=== PATIENT | male | born 1960 | race Caucasian/White ===

== ENCOUNTER 2016-08-01 15:36 | Inpatient (IN) | payer OTHER ==
[2016-08-01 16:28] VITALS: BMI 22.8
--- NOTE | 2016-08-01 17:03 | HP ---
CIWA Score - CIWA Score Nausea/Vomitin-Mild Nausea/No Vomiting Muscle Tremors: 4-Moderate,w/Arms Extend Anxiety: 4-Mod. Anxious/Guarded Agitation: 4-Moderately Restless Paroxysmal Sweats: 1-Minimal Palms Moist Orientation: 3-Disoriented Date>2 days Tacttile Disturbances: 0-None Auditory Disturbances: 0-None Visual Disturbances: 0-None Headache: 0-None Present CIWA-Ar Total Score: 17 Admission ROS S - HPI Chief Complaint: withdrawal sx Allergies/Adverse Reactions: Allergies Allergy/AdvReac Type Severity Reaction Status Date / Time No Known Allergies Allergy Verified 11/30/15 19:05 History of Present Illness: 55 years old male with long history of alcohol nicotine dependence, liver cirrohsis, cataract both eyes, deaf left ear, copd and depression, longest sobriety 18 months is admitted to detox Exam Limitations: No Limitations - Ebola screening Have you traveled outside of the country in the last 21 days: No Have you had contact with anyone from an Ebola affected area: No Have you been sick,other than usual withdrawal symptoms: No Do you have a fever: No - Review of Systems Constitutional: Chills, Loss of Appetite, Changes in sleep, Unexplained wgt Loss EENT: reports: Cataracts (lens 2014 both), Other Respiratory: reports: SOB with Exertion, Productive cough Cardiac: reports: Palpitations GI: reports: Nausea, Poor Appetite, Poor Fluid Intake, Abdominal cramping : reports: No Symptoms Reported Musculoskeletal: reports: Joint Pain (right ankle right wrist) Integumentary: reports: Erythema (right ankle) Neuro: reports: Tremors Endocrine: reports: Unexplained Weight Loss Hematology: reports: No Symptoms Reported Psychiatric: reports: Judgement Intact, Depressed Other Systems: Reviewed and Negative Patient History - Patient Medical History Hx Anemia: No Hx Asthma: Yes Hx Chronic Obstructive Pulmonary Disease (COPD): Yes Hx Cancer: No Hx Cardiac Disorders: No Hx Congestive Heart Failure: No Hx Hypertension: No Hx Hypercholesterolemia: No Hx Pacemaker: No HX Cerebrovascular Accident: No Hx Seizures: No (denies) Hx Dementia: No Hx Diabetes: No Hx Gastrointestinal Disorders: No Hx Liver Disease: Yes (liver cirosis) Hx Genitourinary Disorders: No Hx Sexually Transmitted Disorders: No Hx Renal Disease (ESRD): No Hx Thyroid Disease: Yes (treated with synthroid) Hx Human Immunodeficiency Virus (HIV): No (2015) Hx Hepatitis C: No Hx Depression: Yes Hx Suicide Attempt: Yes (18 months ago hang self) Hx Bipolar Disorder: No Hx Schizophrenia: No - Patient Surgical History Past Surgical History: Yes Hx Neurologic Surgery: No Hx Cataract Extraction: Yes (2014) Hx Cardiac Surgery: No Hx Lung Surgery: No Hx Breast Surgery: No Hx Breast Biopsy: No Hx Abdominal Surgery: No Hx Appendectomy: No Hx Cholecystectomy: No Hx Genitourinary Surgery: No Hx Orthopedic Surgery: Yes (left ankle fx - cast) Anesthesia Reaction: No - PPD History Previous Implant?: Yes Documented Results: Negative w/o proof Implanted On Prior [facility] Admission?: Yes Date: 12/02/15 PPD to be Administered?: Yes - Smoking Cessation Smoking history: Current every day smoker Have you smoked in the past 12 months: Yes Aproximately how many cigarettes per day: 6 Cigars Per Day: 0 Hx Chewing Tobacco Use: No Initiated information on smoking cessation: Yes 'Breaking Loose' booklet given: 08/01/16 - Substance & Tx. History Hx Alcohol Use: Yes Hx Substance Use: No Substance Use Type: Alcohol Hx Substance Use Treatment: Yes - Substances Abused Alcohol Route: Oral Frequency: Daily Amount used: pint volka Age of first use: 14 Date of Last Use: 08/01/16 Family Disease History - Family Disease History Family Disease History: Heart Disease: Father (), [place]: Grandparent, Mother () Other Family History: only child Admission Physical Exam [facility] - Vital Signs Vital Signs: Vital Signs - 24 hr 08/01/16 16:26 Temperature 97.5 F L Pulse Rate 96 H Respiratory 20 Rate Blood Pressure 127/75 - Physical General Appearance: Yes: Appropriately Dressed, Moderate Distress, Alcohol on Breath, Thin, Tremorous, Irritable, Sweating, Anxious HEENTM: Yes: Hearing grossly Normal, Normal ENT Inspection, Normocephalic, Normal Voice Respiratory: Yes: Chest Non-Tender, Lungs Clear, Normal Breath Sounds, No Respiratory Distress, No Accessory Muscle Use Neck: Yes: Supple, Trachea in good position Breast: Yes: Breasts Symetrical Cardiology: Yes: Regular Rhythm, S1, S2, Tachycardia Abdominal: Yes: Non Tender, Soft Genitourinary: Yes: Within Normal Limits Back: Yes: Within Normal Limits Musculoskeletal: Yes: Gait Steady, Joint swelling (right ankle) Extremities: Yes: Non-Tender, Tremors, Swelling (right ankle) Neurological: Yes: Alert, Motor Strength 5/5, Normal Response, Depressed Affect Integumentary: Yes: Warm Lymphatic: Yes: Within Normal Limits - Diagnostic (1) Alcohol dependence with uncomplicated withdrawal Current Visit: Yes Status: Acute (2) Alcoholic cirrhosis of liver without ascites Current Visit: Yes Status: Chronic (3) COPD (chronic obstructive pulmonary disease) Current Visit: Yes Status: Acute Qualifiers: COPD type: emphysema Emphysema type: other Qualified Code(s): J43.8 - Other emphysema (4) Hypothyroidism Current Visit: Yes Status: Acute Qualifiers: Hypothyroidism type: congenital without goiter Qualified Code(s): E03.1 - Congenital hypothyroidism without goiter Comment: last dose "months" ago tsh pending (5) Nicotine dependence Current Visit: Yes Status: Acute Qualifiers: Nicotine product type: cigarettes Substance use status: in withdrawal Qualified Code(s): F17.213 - Nicotine dependence, cigarettes, with withdrawal (6) Depression Current Visit: Yes Status: Suspected Qualifiers: Depression Type: dysthymia Qualified Code(s): F34.1 - Dysthymic disorder (7) S/P cataract extraction and insertion of intraocular lens Current Visit: Yes Status: Resolved Qualifiers: Laterality: unspecified laterality Qualified Code(s): Z98.49 - Cataract extraction status, unspecified eye; Z96.1 - Presence of intraocular lens (8) Acquired deafness of right ear Current Visit: Yes Status: Chronic (9) Weight loss Current Visit: Yes Status: Acute (10) Traumatic arthropathy, right ankle and foot Current Visit: Yes Status: Acute Comment: "more than a week ago" swell + pain x ray pending Cleared for Admission [facility] - Detox or Rehab [facility] Level of Care: Medically Managed Detox Regimen/Protocol: Librium [facility] Breath Alcohol Content Breath Alcohol Content: 0.243 Urine Drug Screen - Results Drug Screen Negative: Yes
[2016-08-01] MEDS ORDERED: MAG HYDROX/AL HYDROX/SIMETH 30 ML UNIT-DOSE CUP PO PRN (17:10)
[2016-08-01] MEDS ORDERED: MENTHOL/PHENOL 1 EACH UD MM PRN (17:10)
[2016-08-01] MEDS ORDERED: diphenhydrAMINE HCL 50 MG CAPSULE PO PRN (17:10)
[2016-08-01] MEDS ORDERED: guaiFENesin/D-METHORPHAN HB 10 ML UNIT-DOSE CUPS PO PRN (17:10)
[2016-08-01] MEDS ORDERED: NICOTINE POLACRILEX 2 MG GUM BC PRN (17:10)
[2016-08-01] MEDS ORDERED: ACETAMINOPHEN 325 MG TABLET (FP) PO PRN (17:10)
[2016-08-01] MEDS ORDERED: P-EPHED 60MG/TRIPROLIDI 2.5MG TABLET PO PRN (17:10)
[2016-08-01] MEDS ORDERED: chlordiazePOXIDE HCL 25 MG CAPSULE PO PRN (17:10)
[2016-08-01] MEDS ORDERED: hydrOXYzine PAMOATE 50 MG CAPSULE (FP) PO PRN (17:10)
[2016-08-01] MEDS ORDERED: IBUPROFEN 400 MG TABLET (FP) PO PRN (17:10)
[2016-08-01] MEDS ORDERED: MAGNESIUM HYDROX 2400MG/30ML ORAL SUSPENSION 30 ML CUP PO PRN (17:10)
[2016-08-01] MEDS ORDERED: LOPERAMIDE HCL 2 MG CAPSULE PO PRN (17:10)
[2016-08-01] MEDS ORDERED: MAGNESIUM CITRATE 300 ML BOTTLE PO PRN (17:10)
[2016-08-01] MEDS ORDERED: ALBUTEROL SO4 6.7 GM HFA INHALER IH PRN (17:13)
[2016-08-01] MEDS ORDERED: chlordiazePOXIDE HCL 25 MG CAPSULE PO ONE (18:45)
[2016-08-01] MEDS: chlordiazePOXIDE HCL 25 MG CAPSULE PO SCH (22:20)
[2016-08-01] MEDS: THIAMINE HCL 100 MG TABLET (FP) PO SCH (22:20)
[2016-08-01] MEDS: BUDESONIDE/FORMETEROL FUMARATE 80/4.5 mcg INHALER IH SCH (22:58)
[2016-08-01 23:39] LABS: URINE APPEARANCE SLCLOUDY; URINE BILIRUBIN NEGATIVE (NEGATIVE); URINE BLOOD NEGATIVE (NEGATIVE); URINE COLOR YELLOW; URINE GLUCOSE (UA) NEGATIVE (NEGATIVE); URINE KETONE NEGATIVE (NEGATIVE); URINE LEUK ESTERASE NEGATIVE (NEGATIVE); URINE NITRITE NEGATIVE (NEGATIVE); URINE PROTEIN NEGATIVE (NEGATIVE); URINE UROBILINOGEN 4.0 E.U/dl E.U./dl (0.2-1.0)
[2016-08-02] MEDS: chlordiazePOXIDE HCL 25 MG CAPSULE PO SCH ×5 (06:57→23:39)
[2016-08-02 10:08] LABS: MCH 34.5 pg (25.7-33.7); MCHC 34.2 g/dl (32.0-35.9); PLATELET COUNT 47 K/MM3 (134-434); RDW 15.2 % (11.9-15.9); WHITE BLOOD COUNT 2.2 K/mm3 (4.0-10.0)
[2016-08-02 10:41] LABS: ALBUMIN 2.9 g/dl (3.4-5.0); ALK PHOS 119 U/L (45-117); ANION GAP 9 (8-16); BILIRUBIN,TOTAL 0.8 mg/dL (0.2-1.0); CALCIUM 7.8 mg/dL (8.5-10.1); CO2 27 mmol/L (21-32); CREATININE 0.6 mg/dL (0.7-1.3); GLUCOSE,RANDOM 124 mg/dL (74-106); SGOT/AST 123 U/L (15-37); SGPT/ALT 59 U/L (12-78); TOT PROT 6.1 g/dl (6.4-8.2)
--- NOTE | 2016-08-02 10:48 | CONSULT ---
[facility] Psychiatric Consult - Data Date of interview: 08/02/16 Admission source: [facility] Identifying data: This is 55 years old male with psychiatric hospitalization history intoxicated with Alcohol and Nicotine Substance Abuse History: - Smoking Cessation. Smoking history: Current every day smoker. Have you smoked in the past 12 months: Yes. Aproximately how many cigarettes per day: 6. Cigars Per Day: 0. Hx Chewing Tobacco Use: No. Initiated information on smoking cessation: Yes. 'Breaking Loose' booklet given : 08/01/16. - Substance & Tx. History. Hx Alcohol Use: Yes. Hx Substance Use : No. Substance Use Type: Alcohol. Hx Substance Use Treatment: Yes. - Substances Abused. Alcohol. Route: Oral. Frequency: Daily. Amount used: pint volka. Age of first use: 14. Date of Last Use: 08/01/16 Medical History: Liver Cirrhosis, Weight loss history, COPD, Hypothyroiditis, Roght led injury history, right deafness history Psychiatric History: Patient reports most recenr psychiatric hospitalization for safety at [facility] on 2015, reports mtaking prior to admission Lexapro 10mg po qhs Physical/Sexual Abuse/Trauma History: Denies Additional Comment: Lexapro 10mg po qhs Mental Status Exam - Mental Status Exam Alert and Oriented to: Person Cognitive Function: Fair Patient Appearance: Unkempt Mood: Sad Affect: Flat Patient Behavior: Sedated Speech Pattern: Delayed Voice Loudness: Mildly Soft/Quiet Thought Process: Circumstantial Thought Disorder: Being Controlled Hallucinations: Denies Suicidal Ideation: Denies Homicidal Ideation: Denies Insight/Judgement: Fair Sleep: Difficulty falling asleep Appetite: Weight loss Muscle strength/Tone: Mild Hypotonicity Gait/Station: Shuffling Additional Comments: Lexapro 10mg po qhs Psychiatric Findings - Problem List ([place] 1, 2,3) (1) Alcohol dependence with uncomplicated withdrawal Current Visit: Yes Status: Acute (2) Nicotine dependence Current Visit: Yes Status: Acute Qualifiers: Nicotine product type: cigarettes Substance use status: in withdrawal Qualified Code(s): F17.213 - Nicotine dependence, cigarettes, with withdrawal (3) Weight loss Current Visit: Yes Status: Acute (4) Acquired deafness of right ear Current Visit: Yes Status: Chronic (5) 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
[2016-08-02] MEDS: ESCITALOPRAM OXALATE 10 MG TABLET (FP) PO SCH ×2 (11:34→11:40)
[2016-08-02] MEDS: BUDESONIDE/FORMETEROL FUMARATE 80/4.5 mcg INHALER IH SCH ×2 (11:34→23:38)
[2016-08-02] MEDS: NICOTINE 14 MG/24 HOURS TOPICAL PATCH TD SCH (11:34)
[2016-08-02] MEDS: PRENATAL VITAMINS W/ FOLIC ACID TABLET (FP) PO SCH ×2 (11:34→11:42)
[2016-08-02] MEDS ORDERED: HYDROCORTISONE 1% TOPICAL CREAM 30 GM TUBE TP PRN (11:51)
--- NOTE | 2016-08-02 11:51 | PN ---
S CIWA - CIWA Score Nausea/Vomitin Muscle Tremors: 3 Anxiety: 3 Agitation: 3 Paroxysmal Sweats: 3 Orientation: 0-Oriented Tacttile Disturbances: 1-Very Mild Itch/Numbness Auditory Disturbances: 0-None Visual Disturbances: 0-None Headache: 0-None Present CIWA-Ar Total Score: 16 BHS Progress Note (SOAP) Subjective: interrupted sleep, sweats , shakes, bitten by ? bed bug left axilla Objective: 08/02/16 11:47 Vital Signs Temperature 97.7 F 08/02/16 09:57 Pulse Rate 104 H 08/02/16 09:57 Respiratory Rate 18 08/02/16 09:57 Blood Pressure 124/70 08/02/16 09:57 O2 Sat by Pulse Oximetry (%) Laboratory Tests 08/01/16 08/02/16 08/02/16 23:20 07:00 07:00 WBC 2.2 L D RBC 3.96 L Hgb 13.7 Hct 40.0 MCV 101.0 H MCHC 34.2 RDW 15.2 Plt Count 47 L D MPV 8.0 Sodium 143 Potassium 3.5 Chloride 107 Carbon Dioxide 27 Anion Gap 9 BUN 7 Creatinine 0.6 L Creat Clearance w eGFR > 60 Random Glucose 124 H D Calcium 7.8 L Total Bilirubin 0.8 D AST 123 H D ALT 59 D Alkaline Phosphatase 119 H Total Protein 6.1 L Albumin 2.9 L TSH 53.70 H D Urine Color Yellow Urine Appearance Slcloudy Urine pH 6.0 Ur Specific [place] 1.014 Urine Protein Negative Urine Glucose (UA) Negative Urine Ketones Negative Urine Blood Negative Urine Nitrite Negative Urine Bilirubin Negative Urine Urobilinogen 4.0 e.u/dl Ur Leukocyte Esterase Negative pt aox3 in nad , trmors left axilla + excoriations Assessment: 08/02/16 11:48 withdrawl sx's ? bed bug bite Plan: cont. detox increase fluids ensure bid house keeping hydrocortisone cream
--- NOTE | 2016-08-02 14:27 | EKG ---
Test Reason : Blood Pressure : / mmHG Vent. Rate : 090 BPM Atrial Rate : 091 BPM P-R Int : 120 ms QRS Dur : 152 ms QT Int : 506 ms P-R-T Axes : 067 083 074 degrees QTc Int : 619 ms POOR DATA QUALITY, INTERPRETATION MAY BE ADVERSELY AFFECTED NORMAL SINUS RHYTHM NON-SPECIFIC INTRA-VENTRICULAR CONDUCTION BLOCK ABNORMAL ECG NO PREVIOUS ECGS AVAILABLE Confirmed by ADALBERTO SHANE, EVELINE ([id number]) on 08/02/2016 2:27:15 PM Referred By: Confirmed By:EVELINE GLOVER MD
--- NOTE | 2016-08-02 14:28 | EKG ---
Test Reason : Blood Pressure : / mmHG Vent. Rate : 080 BPM Atrial Rate : 080 BPM P-R Int : 160 ms QRS Dur : 110 ms QT Int : 428 ms P-R-T Axes : 060 075 071 degrees QTc Int : 493 ms NORMAL SINUS RHYTHM PROLONGED QT ABNORMAL ECG WHEN COMPARED WITH ECG OF 01-AUG-2016 18:59, QRS DURATION HAS DECREASED ST NO LONGER DEPRESSED IN ANTERIOR LEADS T WAVE AMPLITUDE HAS DECREASED IN ANTERIOR LEADS QT HAS SHORTENED Confirmed by EVELINE GLOVER MD ([id number]) on 08/02/2016 2:28:09 PM Referred By: Confirmed By:EVELINE GLOVER MD
[2016-08-02] MEDS ORDERED: ONDANSETRON *ODT* 4 MG TABLET SL ONE (22:44)
[2016-08-02] MEDS ORDERED: NAPROXEN 375 MG TABLET (FP) PO PRN (22:45)
[2016-08-02] MEDS ORDERED: COLLOIDAL OATMEAL 1 BAR EACH TP PRN (23:18)
--- NOTE | 2016-08-02 23:22 | PN ---
[facility] Progress Note Note: tsh 53.7 repeat tsh s/p hepatectomy 2009 follow up with endocrinology continue detox
[2016-08-02] MEDS: THIAMINE HCL 100 MG TABLET (FP) PO SCH (23:38)
[2016-08-03] MEDS: chlordiazePOXIDE HCL 25 MG CAPSULE PO SCH ×3 (06:35→17:38)
[2016-08-03] MEDS ORDERED: ONDANSETRON 4 MG TABLET PO ONE ×2 (07:15→07:45)
[2016-08-03] MEDS ORDERED: ONDANSETRON *ODT* 4 MG TABLET SL PRN (07:34)
--- NOTE | 2016-08-03 10:24 | PN ---
S CIWA - CIWA Score Nausea/Vomitin-Mild Nausea/No Vomiting Muscle Tremors: 4-Moderate,w/Arms Extend Anxiety: 4-Mod. Anxious/Guarded Agitation: 4-Moderately Restless Paroxysmal Sweats: 3 Orientation: 0-Oriented Tacttile Disturbances: 0-None Auditory Disturbances: 0-None Visual Disturbances: 0-None Headache: 2-Mild CIWA-Ar Total Score: 18 BHS Progress Note (SOAP) Subjective: agitation anxiety sweats shakes interrupted sleep headache Objective: 08/03/16 10:22 Vital Signs Temperature 97.9 F 08/03/16 09:49 Pulse Rate 97 H 08/03/16 09:49 Respiratory Rate 18 08/03/16 09:49 Blood Pressure 117/65 08/03/16 09:49 O2 Sat by Pulse Oximetry (%) Laboratory Tests 08/01/16 08/02/16 08/02/16 23:20 07:00 07:00 WBC 2.2 L D RBC 3.96 L Hgb 13.7 Hct 40.0 MCV 101.0 H MCHC 34.2 RDW 15.2 Plt Count 47 L D MPV 8.0 Sodium 143 Potassium 3.5 Chloride 107 Carbon Dioxide 27 Anion Gap 9 BUN 7 Creatinine 0.6 L Creat Clearance w eGFR > 60 Random Glucose 124 H D Calcium 7.8 L Total Bilirubin 0.8 D AST 123 H D ALT 59 D Alkaline Phosphatase 119 H Total Protein 6.1 L Albumin 2.9 L TSH 53.70 H D Urine Color Yellow Urine Appearance Slcloudy Urine pH 6.0 Ur Specific [place] 1.014 Urine Protein Negative Urine Glucose (UA) Negative Urine Ketones Negative Urine Blood Negative Urine Nitrite Negative Urine Bilirubin Negative Urine Urobilinogen 4.0 e.u/dl Ur Leukocyte Esterase Negative RPR Titer 08/02/16 07:00 WBC RBC Hgb Hct MCV MCHC RDW Plt Count MPV Sodium Potassium Chloride Carbon Dioxide Anion Gap BUN Creatinine Creat Clearance w eGFR Random Glucose Calcium Total Bilirubin AST ALT Alkaline Phosphatase Total Protein Albumin TSH Urine Color Urine Appearance Urine pH Ur Specific [place] Urine Protein Urine Glucose (UA) Urine Ketones Urine Blood Urine Nitrite Urine Bilirubin Urine Urobilinogen Ur Leukocyte Esterase RPR Titer Nonreactive awake/alert ambulating no acute distress Assessment: 08/03/16 10:23 withdrawal sx Plan: continue detox increase fluids
[2016-08-03] MEDS: ESCITALOPRAM OXALATE 10 MG TABLET (FP) PO SCH (11:10)
[2016-08-03] MEDS: PRENATAL VITAMINS W/ FOLIC ACID TABLET (FP) PO SCH (11:11)
[2016-08-03] MEDS: BUDESONIDE/FORMETEROL FUMARATE 80/4.5 mcg INHALER IH SCH ×2 (11:11→22:33)
[2016-08-03] MEDS: RANITIDINE HCL 150 MG TABLET (FP) PO SCH ×2 (11:11→22:33)
[2016-08-03] MEDS: NICOTINE 14 MG/24 HOURS TOPICAL PATCH TD SCH (11:11)
[2016-08-03] MEDS: MINERAL OIL/PETROLAT/WATER TOPICAL CREAM 113 GM JAR TP SCH (22:33)
[2016-08-03] MEDS: THIAMINE HCL 100 MG TABLET (FP) PO SCH (22:33)
[2016-08-03] MEDS: chlordiazePOXIDE 5 MG CAPSULE PO SCH (22:33)
[2016-08-04] MEDS: chlordiazePOXIDE 5 MG CAPSULE PO SCH ×3 (05:51→18:27)
[2016-08-04] MEDS: NICOTINE 14 MG/24 HOURS TOPICAL PATCH TD SCH (11:40)
[2016-08-04] MEDS: PRENATAL VITAMINS W/ FOLIC ACID TABLET (FP) PO SCH (11:41)
[2016-08-04] MEDS: ESCITALOPRAM OXALATE 10 MG TABLET (FP) PO SCH (11:43)
[2016-08-04] MEDS: RANITIDINE HCL 150 MG TABLET (FP) PO SCH ×2 (11:43→21:28)
[2016-08-04] MEDS: BUDESONIDE/FORMETEROL FUMARATE 80/4.5 mcg INHALER IH SCH ×2 (11:43→21:28)
--- NOTE | 2016-08-04 12:03 | PN ---
[facility] Progress Note (SOAP) Subjective: nausea, sweats, interrupted sleep, anxiety, tremor Objective: 08/04/16 12:02 Vital Signs - 8 hr 08/04/16 08/04/16 06:00 10:24 Temperature 97.7 F 96.9 F L Pulse Rate 78 84 Respiratory 16 18 Rate Blood Pressure 107/56 123/63 Laboratory Tests 08/01/16 08/02/16 08/02/16 23:20 07:00 07:00 WBC 2.2 L D RBC 3.96 L Hgb 13.7 Hct 40.0 MCV 101.0 H MCHC 34.2 RDW 15.2 Plt Count 47 L D MPV 8.0 Sodium 143 Potassium 3.5 Chloride 107 Carbon Dioxide 27 Anion Gap 9 BUN 7 Creatinine 0.6 L Creat Clearance w eGFR > 60 Random Glucose 124 H D Calcium 7.8 L Total Bilirubin 0.8 D AST 123 H D ALT 59 D Alkaline Phosphatase 119 H Total Protein 6.1 L Albumin 2.9 L TSH 53.70 H D Urine Color Yellow Urine Appearance Slcloudy Urine pH 6.0 Ur Specific [place] 1.014 Urine Protein Negative Urine Glucose (UA) Negative Urine Ketones Negative Urine Blood Negative Urine Nitrite Negative Urine Bilirubin Negative Urine Urobilinogen 4.0 e.u/dl Ur Leukocyte Esterase Negative RPR Titer 08/02/16 08/03/16 07:00 07:00 WBC RBC Hgb Hct MCV MCHC RDW Plt Count MPV Sodium Potassium Chloride Carbon Dioxide Anion Gap BUN Creatinine Creat Clearance w eGFR Random Glucose Calcium Total Bilirubin AST 108 H ALT 56 Alkaline Phosphatase Total Protein Albumin TSH 34.00 H D Urine Color Urine Appearance Urine pH Ur Specific [place] Urine Protein Urine Glucose (UA) Urine Ketones Urine Blood Urine Nitrite Urine Bilirubin Urine Urobilinogen Ur Leukocyte Esterase RPR Titer Nonreactive Assessment: 08/04/16 12:02 withdrawal sx, elevated TSH Plan: cont detox, hypothyroidism refer PCP for work up and possible thyroxine treatment on discharge
[2016-08-04 17:40] VITALS: TEMP 97.9
[2016-08-04] MEDS: THIAMINE HCL 100 MG TABLET (FP) PO SCH (21:28)
[2016-08-04] MEDS: chlordiazePOXIDE HCL 10 MG CAPSULE PO SCH (22:00)
[2016-08-04] MEDS: MINERAL OIL/PETROLAT/WATER TOPICAL CREAM 113 GM JAR TP SCH (22:51)
[2016-08-05] MEDS: chlordiazePOXIDE HCL 10 MG CAPSULE PO SCH (05:53)
[2016-08-05 06:40] VITALS: BP 129/58; PULSE 69
--- NOTE | 2016-08-05 08:39 | DS ---
[facility] Detox Discharge Summary Admission Date: 08/01/16 Discharge Date: 08/05/16 - History Present History: Alcohol Dependence Pertinent Past History: COPD CIRRHOSIS CATARACT EXTRACTION HEP C - Physical Exam Results Vital Signs: Vital Signs Temperature 97.9 F 08/05/16 06:00 Pulse Rate 69 08/05/16 06:00 Respiratory Rate 16 08/05/16 06:00 Blood Pressure 129/58 08/05/16 06:00 O2 Sat by Pulse Oximetry (%) Pertinent Admission Physical Exam Findings: WITHDRAWAL SX. Laboratory Last Values WBC 2.2 K/mm3 (4.0-10.0) L D 08/02/16 07:00 RBC 3.96 M/mm3 (4.00-5.60) L 08/02/16 07:00 Hgb 13.7 GM/dL (11.7-16.9) 08/02/16 07:00 Hct 40.0 % (35.4-49) 08/02/16 07:00 MCV 101.0 fl (80-96) H 08/02/16 07:00 MCHC 34.2 g/dl (32.0-35.9) 08/02/16 07:00 RDW 15.2 % (11.9-15.9) 08/02/16 07:00 Plt Count 47 K/MM3 (134-434) L D 08/02/16 07:00 MPV 8.0 fl (7.5-11.1) 08/02/16 07:00 Sodium 143 mmol/L (136-145) 08/02/16 07:00 Potassium 3.5 mmol/L (3.5-5.1) 08/02/16 07:00 Chloride 107 mmol/L (98-107) 08/02/16 07:00 Carbon Dioxide 27 mmol/L (21-32) 08/02/16 07:00 Anion Gap 9 (8-16) 08/02/16 07:00 BUN 7 mg/dL (7-18) 08/02/16 07:00 Creatinine 0.6 mg/dL (0.7-1.3) L 08/02/16 07:00 Creat Clearance w eGFR > 60 (>60) 08/02/16 07:00 Random Glucose 124 mg/dL (74-106) H D 08/02/16 07:00 Calcium 7.8 mg/dL (8.5-10.1) L 08/02/16 07:00 Total Bilirubin 0.8 mg/dL (0.2-1.0) D 08/02/16 07:00 AST 108 U/L (15-37) H 08/03/16 07:00 ALT 56 U/L (12-78) 08/03/16 07:00 Alkaline Phosphatase 119 U/L (45-117) H 08/02/16 07:00 Total Protein 6.1 g/dl (6.4-8.2) L 08/02/16 07:00 Albumin 2.9 g/dl (3.4-5.0) L 08/02/16 07:00 TSH 34.00 uIU/ml (0.358-3.74) H D 08/03/16 07:00 Urine Color Yellow 08/01/16 23:20 Urine Appearance Slcloudy 08/01/16 23:20 Urine pH 6.0 (5.0-8.0) 08/01/16 23:20 Ur Specific [place] 1.014 (1.001-1.035) 08/01/16 23:20 Urine Protein Negative (NEGATIVE) 08/01/16 23:20 Urine Glucose (UA) Negative (NEGATIVE) 08/01/16 23:20 Urine Ketones Negative (NEGATIVE) 08/01/16 23:20 Urine Blood Negative (NEGATIVE) 08/01/16 23:20 Urine Nitrite Negative (NEGATIVE) 08/01/16 23:20 Urine Bilirubin Negative (NEGATIVE) 08/01/16 23:20 Urine Urobilinogen 4.0 e.u/dl E.U./dl (0.2-1.0) 08/01/16 23:20 Ur Leukocyte Esterase Negative (NEGATIVE) 08/01/16 23:20 RPR Titer Nonreactive (NONREACTIVE) 08/02/16 07:00 LABS NOTED - Treatment Hospital Course: Detox Protocol Followed, Detoxed Safely, Responded well, Discharged Condition Good, Rehab Referral Accepted - Medication Discharge Medications: Ambulatory Orders Albuterol Sulfate Inhaler - [Ventolin Hfa Inhaler -] 1 - 2 inh PO Q4H 11/30/15 Escitalopram Oxalate [Lexapro -] 10 mg PO DAILY 11/30/15 Fluticasone/Salmeterol [Advair 250-50 Diskus] 1 each IH BID 11/30/15 Escitalopram Oxalate [Lexapro -] 10 mg PO DAILY #30 tablet 08/02/16 - Diagnosis (1) Alcohol dependence with uncomplicated withdrawal Current Visit: Yes Status: Acute (2) COPD (chronic obstructive pulmonary disease) Current Visit: Yes Status: Acute Qualifiers: COPD type: emphysema Emphysema type: other Qualified Code(s): J43.8 - Other emphysema (3) Nicotine dependence Current Visit: Yes Status: Acute Qualifiers: Nicotine product type: cigarettes Substance use status: in withdrawal Qualified Code(s): F17.213 - Nicotine dependence, cigarettes, with withdrawal (4) Alcoholic cirrhosis of liver without ascites Current Visit: Yes Status: Chronic (5) Hepatitis C Current Visit: Yes Status: Chronic Qualifiers: Hepatic coma status: without hepatic coma (6) S/P cataract extraction and insertion of intraocular lens Current Visit: Yes Status: Resolved Qualifiers: Laterality: unspecified laterality Qualified Code(s): Z98.49 - Cataract extraction status, unspecified eye; Z96.1 - Presence of intraocular lens (7) Drug-induced mood disorder Current Visit: Yes Status: Acute - AMA Did Patient Leave Against Medical Advice: No
== END 2016-08-05 10:14 | disposition home or self-care (01) | DRG 775 ==
LOC: YASAS 15:36 → Y6N 18:18
PROVIDERS: ADMIT Internal Medicine Addiction Medicine; ATTEND Internal Medicine Addiction Medicine
PROC: HZ2ZZZZ Detoxification Services for Substance Abuse Treatment (ICD-10-PCS; principal; 2016-08-01)
DX: F10.230 Alcohol dependence with withdrawal, uncomplicated (principal); F17.210 Nicotine dependence, cigarettes, uncomplicated; F19.24 Other psychoactive substance dependence with psychoactive substance-induced mood disorder; F34.1 Dysthymic disorder; J45.909 Unspecified asthma, uncomplicated; J43.8 Other emphysema; K70.30 Alcoholic cirrhosis of liver without ascites; R94.6 Abnormal results of thyroid function studies; R00.0 Tachycardia, unspecified; B18.2 Chronic viral hepatitis C; E03.9 Hypothyroidism, unspecified; H91.91 Unspecified hearing loss, right ear; Z87.898 Personal history of other specified conditions; Z98.49 Cataract extraction status, unspecified eye; Z96.1 Presence of intraocular lens; Z91.5 Personal history of self-harm; M12.571 Traumatic arthropathy, right ankle and foot; S40.862A Insect bite (nonvenomous) of left upper arm, initial encounter; W57.XXXA Bitten or stung by nonvenomous insect and other nonvenomous arthropods, initial encounter; Y93.9 Activity, unspecified; T14.90 Injury, unspecified; Y92.9 Unspecified place or not applicable
CPT/HCPCS: 36415; 73610-TC-RT; 73630-TC-RT; 80053; 81003; 84443; 84450; 84460; 85027; 86593; 93005; 93010

== ENCOUNTER 2018-04-08 15:17 | Inpatient (IN) | payer OTHER ==
[2018-04-08 16:48] VITALS: BMI 21.5
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
[2018-04-08] MEDS ORDERED: ACETAMINOPHEN 325 MG TABLET (FP) PO PRN (18:43)
[2018-04-08] MEDS ORDERED: P-EPHED 60MG/TRIPROLIDI 2.5MG TABLET PO PRN (18:43)
[2018-04-08] MEDS ORDERED: MENTHOL/PHENOL 1 EACH UD MM PRN (18:43)
[2018-04-08] MEDS ORDERED: guaiFENesin/D-METHORPHAN HB 10 ML UNIT-DOSE CUPS PO PRN (18:43)
[2018-04-08] MEDS ORDERED: MAGNESIUM HYDROX 2400MG/30ML ORAL SUSPENSION 30 ML CUP PO PRN (18:43)
[2018-04-08] MEDS ORDERED: MAG HYDROX/AL HYDROX/SIMETH 30 ML UNIT-DOSE CUP PO PRN (18:43)
[2018-04-08] MEDS ORDERED: LOPERAMIDE HCL 2 MG CAPSULE PO PRN (18:43)
[2018-04-08] MEDS ORDERED: MAGNESIUM CITRATE 300 ML BOTTLE PO PRN (18:43)
[2018-04-08] MEDS ORDERED: NICOTINE POLACRILEX 2 MG GUM BC PRN (18:43)
[2018-04-08] MEDS ORDERED: hydrOXYzine PAMOATE 25 MG CAPSULE (FP) PO PRN (18:43)
[2018-04-08] MEDS ORDERED: chlordiazePOXIDE HCL 25 MG CAPSULE PO PRN (18:43)
[2018-04-08] MEDS ORDERED: IBUPROFEN 400 MG TABLET (FP) PO PRN (18:43)
[2018-04-08] MEDS ORDERED: chlordiazePOXIDE HCL 25 MG CAPSULE PO ONE (19:15)
[2018-04-08] MEDS ORDERED: COLLOIDAL OATMEAL 1 BAR EACH TP PRN (19:30)
[2018-04-08] MEDS ORDERED: BACITRACIN 15 GM TUBE TOPICAL OINTMENT TP SCH (22:00)
[2018-04-08] MEDS: chlordiazePOXIDE HCL 25 MG CAPSULE PO SCH (22:15)
[2018-04-08] MEDS: THIAMINE HCL 100 MG TABLET (FP) PO SCH (22:15)
[2018-04-08] MEDS: TOLNAFTATE 1% CREAM 15 GM TUBE TP SCH (22:15)
[2018-04-09 00:21] LABS: URINE APPEARANCE SLCLOUDY; URINE BILIRUBIN NEGATIVE (<2.0 mg/dL); URINE COLOR AMBER; URINE GLUCOSE (UA) NEGATIVE (NEGATIVE); URINE KETONE NEGATIVE (NEGATIVE); URINE LEUK ESTERASE NEGATIVE (NEGATIVE); URINE NITRITE NEGATIVE (NEGATIVE); URINE UROBILINOGEN 4.0 E.U/dl mg/dL (0.2-1.0)
[2018-04-09 00:26] LABS: URINE PROTEIN 1+ (NEGATIVE)
[2018-04-09 00:28] LABS: EPI CELLS RARE /HPF (FEW); URINE BACTERIA RARE /hpf (NONE SEEN); URINE MUCUS MANY
[2018-04-09] MEDS: chlordiazePOXIDE HCL 25 MG CAPSULE PO SCH ×4 (05:38→22:31)
[2018-04-09] MEDS ORDERED: BACITRACIN 0.9 GM PACKET TP SCH (08:27)
--- NOTE | 2018-04-09 10:04 | EKG ---
Test Reason : Blood Pressure : / mmHG Vent. Rate : 075 BPM Atrial Rate : 075 BPM P-R Int : 150 ms QRS Dur : 106 ms QT Int : 454 ms P-R-T Axes : 063 075 079 degrees QTc Int : 506 ms NORMAL SINUS RHYTHM LOW VOLTAGE QRS PROLONGED QT ABNORMAL ECG WHEN COMPARED WITH ECG OF 02-AUG-2016 06:42, NO SIGNIFICANT CHANGE WAS FOUND Confirmed by KEN WARD MD ([id number]) on 04/09/2018 10:03:48 AM Referred By: Confirmed By:KEN WARD MD
[2018-04-09] MEDS: TOLNAFTATE 1% CREAM 15 GM TUBE TP SCH ×2 (10:18→22:30)
[2018-04-09] MEDS: PRENATAL VITAMINS W/ FOLIC ACID TABLET (FP) PO SCH (10:18)
[2018-04-09] MEDS: BACITRACIN 0.9 GM PACKET TP SCH ×2 (10:19→22:31)
[2018-04-09 10:26] LABS: HEMATOCRIT 36.4 % (35.4-49); HEMOGLOBIN 11.6 GM/dL (11.7-16.9); MCH 33.1 pg (25.7-33.7); MCHC 31.9 g/dl (32.0-35.9); MEAN CELL VOLUME 103.7 fl (80-96); MEAN PLT VOLUME 9.6 fl (7.5-11.1); PLATELET COUNT 40 K/MM3 (134-434); RBC 3.51 M/mm3 (4.00-5.60); RDW 19.5 % (11.9-15.9); WHITE BLOOD COUNT 2.1 K/mm3 (4.0-10.0)
[2018-04-09 11:21] LABS: ALBUMIN 2.6 g/dl (3.4-5.0); ALK PHOS 148 U/L (45-117); ANION GAP 10 MMOL/L (8-16); BILIRUBIN,TOTAL 1.4 mg/dL (0.2-1); BLOOD UREA NITROGEN 17 mg/dL (7-18); CALCIUM 7.6 mg/dL (8.5-10.1); CHLORIDE 113 mmol/L (98-107); CO2 23 mmol/L (21-32); CREATININE 0.5 mg/dL (0.55-1.3); GLUCOSE,RANDOM 113 mg/dL (74-106); SGOT/AST 79 U/L (15-37); SGPT/ALT 33 U/L (13-61); SODIUM 146 mmol/L (136-145); TOT PROT 5.7 g/dl (6.4-8.2)
--- NOTE | 2018-04-09 11:59 | EKG ---
Test Reason : Blood Pressure : / mmHG Vent. Rate : 094 BPM Atrial Rate : 094 BPM P-R Int : 144 ms QRS Dur : 098 ms QT Int : 410 ms P-R-T Axes : 066 080 077 degrees QTc Int : 512 ms SINUS RHYTHM WITH FREQUENT PREMATURE VENTRICULAR COMPLEXES IN A PATTERN OF BIGEMINY PROLONGED QT ABNORMAL ECG WHEN COMPARED WITH ECG OF 02-AUG-2016 06:42, PREMATURE VENTRICULAR COMPLEXES ARE NOW PRESENT T WAVE AMPLITUDE HAS INCREASED IN INFERIOR LEADS Confirmed by ED SHANE, KEN ([id number]) on 04/09/2018 11:58:53 AM Referred By: Confirmed By:KEN WARD MD
--- NOTE | 2018-04-09 14:28 | CONSULT ---
[facility] Psychiatric Consult - Data Date of interview: 04/09/18 Admission source: [facility] Identifying data: Readmission to [facility] for this 57 y/o male self- referred for detoxification treatment (alcohol,cannabis).Admitted to [address] [place] [address] Patient is ,a father of one,domiciled,unemployed and supported on SSD + food stamps. Substance Abuse History: Confirmed by patient in this interview.Details in current [facility] report : Smoking history: Current every day smoker. Have you smoked in the past 12 months: Yes. Aproximately how many cigarettes per day: 6. Cigars Per Day: 0. Hx Chewing Tobacco Use: No. Initiated information on smoking cessation: Yes. 'Breaking Loose' booklet given: 04/08/18. - Substance & Tx. History. Hx Alcohol Use: Yes. Hx Substance Use: Yes. Substance Use Type : Alcohol. Hx Substance Use Treatment: Yes (detox, rehabs). - Substances Abused. Alcohol. Route: Oral. Frequency: Daily. Amount used: LIQUOR- 1 LITRE. Age of first use: 12. Date of Last Use: 04/08/18 Medical History: Deafness in left ear,eye surgery in the past (excision of cataracts in both eyes), COPD,hypothyroidism,cirrhosis of the liver,antecedent of withdrawal-related seizures and esophageal varices (history). Psychiatric History: Patient reports a history of 5-7 psychiatric hospitalizations.Known to [facility].Diagnosed with MDD and prescribed lexapro (dose not recalled). patient has abstained from psychiatric OPD care.Has stopped taking his medication " for a while ".Mr Singleton denies history of sucicide attempts. Physical/Sexual Abuse/Trauma History: Patient denies. Additional Comment: Urine Drug Screen Results: THC-Marijuana, BZO- Benzodiazepines.Noted. Mental Status Exam - Mental Status Exam Alert and Oriented to: Time, Place, Person Cognitive Function: Good Patient Appearance: Unkempt, Disheveled Mood: Withdrawn Affect: Normal Range Patient Behavior: Fatigued, Appropriate, Cooperative Speech Pattern: Clear, Appropriate Voice Loudness: Normal Thought Process: Goal Oriented Thought Disorder: Not Present Hallucinations: Denies Suicidal Ideation: Denies Homicidal Ideation: Denies Insight/Judgement: Poor Sleep: Well Appetite: Good Muscle strength/Tone: Normal Gait/Station: Other (not observed ; patient in bed for entire interview) Psychiatric Findings - Problem List ([place] 1, 2,3) (1) Alcohol dependence with uncomplicated withdrawal Current Visit: Yes Status: Acute (2) Cannabis dependence Current Visit: Yes Status: Acute (3) Nicotine dependence Current Visit: Yes Status: Acute Qualifiers: Nicotine product type: cigarettes Substance use status: uncomplicated Qualified Code(s): F17.210 - Nicotine dependence, cigarettes, uncomplicated (4) Drug-induced mood disorder Current Visit: Yes Status: Acute - Initial Treatment Plan Initial Treatment Plan: Psychoeducation.Sleep hygiene.Detoxification in progress.Patient is encouraged to attend therapy groups + AA meetings + recreational activities on the unit.Mr Singleton agrees to this careplan.Observation.
--- NOTE | 2018-04-09 15:52 | PN ---
S CIWA - CIWA Score Nausea/Vomitin Muscle Tremors: 4-Moderate,w/Arms Extend Anxiety: 4-Mod. Anxious/Guarded Agitation: 4-Moderately Restless Paroxysmal Sweats: 3 Orientation: 0-Oriented Tacttile Disturbances: 0-None Auditory Disturbances: 0-None Visual Disturbances: 0-None Headache: 0-None Present CIWA-Ar Total Score: 18 BHS Progress Note (SOAP) Subjective: Asleep Objective: 04/09/18 15:48 Last Vital Signs Temp Pulse Resp BP Pulse Ox 98.5 F 77 16 129/77 04/09/18 13:48 04/09/18 13:48 04/09/18 13:48 04/09/18 13:48 Laboratory Tests 04/08/18 04/09/18 04/09/18 00:00 07:00 07:00 WBC 2.1 L RBC 3.51 L Hgb 11.6 L Hct 36.4 MCV 103.7 H MCH 33.1 MCHC 31.9 L RDW 19.5 H Plt Count 40 L MPV 9.6 D Sodium 146 H Potassium 4.0 Chloride 113 H Carbon Dioxide 23 Anion Gap 10 BUN 17 Creatinine 0.5 L Creat Clearance w eGFR > 60 Random Glucose 113 H Calcium 7.6 L Total Bilirubin 1.4 H AST 79 H ALT 33 Alkaline Phosphatase 148 H Total Protein 5.7 L Albumin 2.6 L Urine Color Chante Urine Appearance Slcloudy Urine pH 5.0 Ur Specific [place] 1.024 Urine Protein 1+ H Urine Glucose (UA) Negative Urine Ketones Negative Urine Blood 3+ H Urine Nitrite Negative Urine Bilirubin Negative Urine Urobilinogen 4.0 e.u/dl Ur Leukocyte Esterase Negative Urine WBC (Auto) 16 Urine RBC (Auto) 117 Ur Epithelial Cells Rare Urine Bacteria Rare Urine Mucus Many RPR Titer 04/09/18 07:00 WBC RBC Hgb Hct MCV MCH MCHC RDW Plt Count MPV Sodium Potassium Chloride Carbon Dioxide Anion Gap BUN Creatinine Creat Clearance w eGFR Random Glucose Calcium Total Bilirubin AST ALT Alkaline Phosphatase Total Protein Albumin Urine Color Urine Appearance Urine pH Ur Specific [place] Urine Protein Urine Glucose (UA) Urine Ketones Urine Blood Urine Nitrite Urine Bilirubin Urine Urobilinogen Ur Leukocyte Esterase Urine WBC (Auto) Urine RBC (Auto) Ur Epithelial Cells Urine Bacteria Urine Mucus RPR Titer Nonreactive Labs reviewed: pancytopenia, abnormal UA Assessment: 04/09/18 15:49 Withdrawal sxs Noted with pancytopenia and abnormal UA Plan: Continue detox Pancytopenia: monitor for bleeding/bruising, encouraged good hand hygiene to prevent infection, follow up with PCP post discharge for management Abnormal UA: encouraged PO water intake, repeat UA
[2018-04-09] MEDS: MELATONIN 5 MG TABLETS PO PRN (22:31)
[2018-04-09] MEDS: THIAMINE HCL 100 MG TABLET (FP) PO SCH (22:31)
[2018-04-10] MEDS: chlordiazePOXIDE HCL 25 MG CAPSULE PO SCH ×3 (05:49→17:30)
[2018-04-10] MEDS: TOLNAFTATE 1% CREAM 15 GM TUBE TP SCH ×2 (10:36→22:34)
[2018-04-10] MEDS: PRENATAL VITAMINS W/ FOLIC ACID TABLET (FP) PO SCH (10:36)
[2018-04-10] MEDS: BACITRACIN 0.9 GM PACKET TP SCH ×2 (10:36→22:34)
--- NOTE | 2018-04-10 14:12 | PN ---
S CIWA - CIWA Score Nausea/Vomitin-Mild Nausea/No Vomiting Muscle Tremors: 3 Anxiety: 4-Mod. Anxious/Guarded Agitation: 3 Paroxysmal Sweats: 3 Orientation: 0-Oriented Tacttile Disturbances: 1-Very Mild Itch/Numbness Auditory Disturbances: 0-None Visual Disturbances: 0-None Headache: 1-Very Mild CIWA-Ar Total Score: 16 BHS Progress Note (SOAP) Subjective: Tremor, interrupted sleep Objective: 04/10/18 14:08 Last Vital Signs Temp Pulse Resp BP Pulse Ox 97.2 F L 77 18 123/78 04/10/18 09:30 04/10/18 09:30 04/10/18 09:30 04/10/18 09:30 Laboratory Tests 04/08/18 04/09/18 04/09/18 00:00 07:00 07:00 WBC 2.1 L RBC 3.51 L Hgb 11.6 L Hct 36.4 MCV 103.7 H MCH 33.1 MCHC 31.9 L RDW 19.5 H Plt Count 40 L MPV 9.6 D Sodium 146 H Potassium 4.0 Chloride 113 H Carbon Dioxide 23 Anion Gap 10 BUN 17 Creatinine 0.5 L Creat Clearance w eGFR > 60 Random Glucose 113 H Calcium 7.6 L Total Bilirubin 1.4 H AST 79 H ALT 33 Alkaline Phosphatase 148 H Total Protein 5.7 L Albumin 2.6 L Urine Color Chante Urine Appearance Slcloudy Urine pH 5.0 Ur Specific [place] 1.024 Urine Protein 1+ H Urine Glucose (UA) Negative Urine Ketones Negative Urine Blood 3+ H Urine Nitrite Negative Urine Bilirubin Negative Urine Urobilinogen 4.0 e.u/dl Ur Leukocyte Esterase Negative Urine WBC (Auto) 16 Urine RBC (Auto) 117 Ur Epithelial Cells Rare Urine Bacteria Rare Urine Mucus Many RPR Titer 04/09/18 07:00 WBC RBC Hgb Hct MCV MCH MCHC RDW Plt Count MPV Sodium Potassium Chloride Carbon Dioxide Anion Gap BUN Creatinine Creat Clearance w eGFR Random Glucose Calcium Total Bilirubin AST ALT Alkaline Phosphatase Total Protein Albumin Urine Color Urine Appearance Urine pH Ur Specific [place] Urine Protein Urine Glucose (UA) Urine Ketones Urine Blood Urine Nitrite Urine Bilirubin Urine Urobilinogen Ur Leukocyte Esterase Urine WBC (Auto) Urine RBC (Auto) Ur Epithelial Cells Urine Bacteria Urine Mucus RPR Titer Nonreactive Labs reviewed: plt 40, abnormal UA Assessment: 04/10/18 14:09 Withdrawal sxs Noted with thrombocytopenia and abnormal UA Plan: Continue detox Thrombocytopenia: follow up with PCP post discharge for monitoring/management Abnormal UA: encouraged PO water intake, follow up on repeated UA result
[2018-04-10 17:31] LABS: URINE APPEARANCE CLEAR; URINE BILIRUBIN NEGATIVE (<2.0 mg/dL); URINE COLOR YELLOW; URINE GLUCOSE (UA) NEGATIVE (NEGATIVE); URINE KETONE NEGATIVE (NEGATIVE); URINE LEUK ESTERASE NEGATIVE (NEGATIVE); URINE NITRITE NEGATIVE (NEGATIVE); URINE PROTEIN NEGATIVE (NEGATIVE); URINE UROBILINOGEN 4.0 E.U/dl mg/dL (0.2-1.0)
[2018-04-10] MEDS: THIAMINE HCL 100 MG TABLET (FP) PO SCH (22:34)
[2018-04-10] MEDS: chlordiazePOXIDE 5 MG CAPSULE PO SCH (22:34)
[2018-04-11] MEDS: chlordiazePOXIDE 5 MG CAPSULE PO SCH ×3 (06:07→19:45)
[2018-04-11] MEDS: TOLNAFTATE 1% CREAM 15 GM TUBE TP SCH ×2 (10:39→22:29)
[2018-04-11] MEDS: BACITRACIN 0.9 GM PACKET TP SCH ×2 (10:39→22:28)
[2018-04-11] MEDS: PRENATAL VITAMINS W/ FOLIC ACID TABLET (FP) PO SCH (10:39)
--- NOTE | 2018-04-11 16:27 | PN ---
BHS Progress Note (SOAP) Subjective: Stomach ache, interrupted sleep Objective: 04/11/18 16:26 Last Vital Signs Temp Pulse Resp BP Pulse Ox 97.3 F L 70 17 133/67 04/11/18 13:51 04/11/18 13:51 04/11/18 13:51 04/11/18 13:51 Laboratory Tests 04/08/18 04/09/18 04/09/18 00:00 07:00 07:00 WBC 2.1 L RBC 3.51 L Hgb 11.6 L Hct 36.4 MCV 103.7 H MCH 33.1 MCHC 31.9 L RDW 19.5 H Plt Count 40 L MPV 9.6 D Sodium 146 H Potassium 4.0 Chloride 113 H Carbon Dioxide 23 Anion Gap 10 BUN 17 Creatinine 0.5 L Creat Clearance w eGFR > 60 Random Glucose 113 H Calcium 7.6 L Total Bilirubin 1.4 H AST 79 H ALT 33 Alkaline Phosphatase 148 H Total Protein 5.7 L Albumin 2.6 L Urine Color Chante Urine Appearance Slcloudy Urine pH 5.0 Ur Specific [place] 1.024 Urine Protein 1+ H Urine Glucose (UA) Negative Urine Ketones Negative Urine Blood 3+ H Urine Nitrite Negative Urine Bilirubin Negative Urine Urobilinogen 4.0 e.u/dl Ur Leukocyte Esterase Negative Urine WBC (Auto) 16 Urine RBC (Auto) 117 Ur Epithelial Cells Rare Urine Bacteria Rare Urine Mucus Many RPR Titer 04/09/18 04/10/18 07:00 14:30 WBC RBC Hgb Hct MCV MCH MCHC RDW Plt Count MPV Sodium Potassium Chloride Carbon Dioxide Anion Gap BUN Creatinine Creat Clearance w eGFR Random Glucose Calcium Total Bilirubin AST ALT Alkaline Phosphatase Total Protein Albumin Urine Color Yellow Urine Appearance Clear Urine pH 8.0 D Ur Specific [place] 1.013 Urine Protein Negative Urine Glucose (UA) Negative Urine Ketones Negative Urine Blood Negative Urine Nitrite Negative Urine Bilirubin Negative Urine Urobilinogen 4.0 e.u/dl Ur Leukocyte Esterase Negative Urine WBC (Auto) Urine RBC (Auto) Ur Epithelial Cells Urine Bacteria Urine Mucus RPR Titer Nonreactive Labs reviewed: plt 40 Assessment: 04/11/18 16:26 Withdrawal sxs Noted with thrombocytopenia Plan: Continue detox Encouraged PO water hydration Thrombocytopenia: follow up with PCP for monitoring post discharge Abnormal UA resolved
[2018-04-11] MEDS: THIAMINE HCL 100 MG TABLET (FP) PO SCH (22:28)
[2018-04-11] MEDS: MELATONIN 5 MG TABLETS PO PRN (22:28)
[2018-04-11] MEDS: chlordiazePOXIDE HCL 10 MG CAPSULE PO SCH (22:28)
[2018-04-12] MEDS: chlordiazePOXIDE HCL 10 MG CAPSULE PO SCH (06:05)
[2018-04-12 06:54] VITALS: BP 104/56; PULSE 82; TEMP 97.5
--- NOTE | 2018-04-12 16:04 | DS ---
[facility] Detox Discharge Summary Admission Date: 04/08/18 Discharge Date: 04/12/18 - History Present History: Alcohol Dependence Additional Comments: Patient tot follow up with primary care provider in a week. - Physical Exam Results Vital Signs: Vital Signs Temperature 97.5 F L 04/12/18 06:54 Pulse Rate 82 04/12/18 06:54 Respiratory Rate 18 04/12/18 06:54 Blood Pressure 104/56 L 04/12/18 06:54 O2 Sat by Pulse Oximetry (%) Pertinent Admission Physical Exam Findings: Vital Signs Temperature 97.5 F L 04/12/18 06:54 Pulse Rate 82 04/12/18 06:54 Respiratory Rate 18 04/12/18 06:54 Blood Pressure 104/56 L 04/12/18 06:54 O2 Sat by Pulse Oximetry (%) Laboratory Last Values WBC 2.1 K/mm3 (4.0-10.0) L 04/09/18 07:00 RBC 3.51 M/mm3 (4.00-5.60) L 04/09/18 07:00 Hgb 11.6 GM/dL (11.7-16.9) L 04/09/18 07:00 Hct 36.4 % (35.4-49) 04/09/18 07:00 MCV 103.7 fl (80-96) H 04/09/18 07:00 MCH 33.1 pg (25.7-33.7) 04/09/18 07:00 MCHC 31.9 g/dl (32.0-35.9) L 04/09/18 07:00 RDW 19.5 % (11.9-15.9) H 04/09/18 07:00 Plt Count 40 K/MM3 (134-434) L 04/09/18 07:00 MPV 9.6 fl (7.5-11.1) D 04/09/18 07:00 Sodium 146 mmol/L (136-145) H 04/09/18 07:00 Potassium 4.0 mmol/L (3.5-5.1) 04/09/18 07:00 Chloride 113 mmol/L (98-107) H 04/09/18 07:00 Carbon Dioxide 23 mmol/L (21-32) 04/09/18 07:00 Anion Gap 10 MMOL/L (8-16) 04/09/18 07:00 BUN 17 mg/dL (7-18) 04/09/18 07:00 Creatinine 0.5 mg/dL (0.55-1.3) L 04/09/18 07:00 Creat Clearance w eGFR > 60 (>60) 04/09/18 07:00 Random Glucose 113 mg/dL (74-106) H 04/09/18 07:00 Calcium 7.6 mg/dL (8.5-10.1) L 04/09/18 07:00 Total Bilirubin 1.4 mg/dL (0.2-1) H 04/09/18 07:00 AST 79 U/L (15-37) H 04/09/18 07:00 ALT 33 U/L (13-61) 04/09/18 07:00 Alkaline Phosphatase 148 U/L (45-117) H 04/09/18 07:00 Total Protein 5.7 g/dl (6.4-8.2) L 04/09/18 07:00 Albumin 2.6 g/dl (3.4-5.0) L 04/09/18 07:00 Urine Color Yellow 04/10/18 14:30 Urine Appearance Clear 04/10/18 14:30 Urine pH 8.0 (5.0-8.0) D 04/10/18 14:30 Ur Specific [place] 1.013 (1.004-1.035) 04/10/18 14:30 Urine Protein Negative (NEGATIVE) 04/10/18 14:30 Urine Glucose (UA) Negative (NEGATIVE) 04/10/18 14:30 Urine Ketones Negative (NEGATIVE) 04/10/18 14:30 Urine Blood Negative (NEGATIVE) 04/10/18 14:30 Urine Nitrite Negative (NEGATIVE) 04/10/18 14:30 Urine Bilirubin Negative (<2.0 mg/dL) 04/10/18 14:30 Urine Urobilinogen 4.0 e.u/dl mg/dL (0.2-1.0) 04/10/18 14:30 Ur Leukocyte Esterase Negative (NEGATIVE) 04/10/18 14:30 Urine WBC (Auto) 16 /hpf (3-5) 04/08/18 00:00 Urine RBC (Auto) 117 /hpf (0-3) 04/08/18 00:00 Ur Epithelial Cells Rare /HPF (FEW) 04/08/18 00:00 Urine Bacteria Rare /hpf (NONE SEEN) 04/08/18 00:00 Urine Mucus Many 04/08/18 00:00 RPR Titer Nonreactive (NONREACTIVE) 04/09/18 07:00 - Treatment Hospital Course: Detox Protocol Followed, Detoxed Safely, Responded well, Discharged Condition Good, Rehab Referral Accepted Patient has Accepted a Rehab Referral to: [facility] - Medication Discharge Medications: Ambulatory Orders Escitalopram Oxalate [Lexapro -] 10 mg PO DAILY 11/30/15 Albuterol Sulfate Inhaler - [Ventolin HFA Inhaler -] 2 puff PO Q4H PRN #1 inhaler 04/12/18 Fluticasone/Salmeterol [Advair 250-50 Diskus] 1 each IH BID #1 blst.w.dev - Diagnosis (1) Alcohol dependence with uncomplicated withdrawal Status: Acute (2) Pancytopenia Status: Acute (3) Acquired deafness of right ear Status: Chronic (4) Alcoholic cirrhosis of liver without ascites Status: Chronic (5) COPD (chronic obstructive pulmonary disease) Status: Chronic Qualifiers: COPD type: emphysema Emphysema type: unspecified Qualified Code(s): J43.9 - Emphysema, unspecified (6) Cannabis dependence Status: Chronic (7) Hepatitis C Status: Chronic Qualifiers: Hepatic coma status: without hepatic coma (8) Nicotine dependence Status: Chronic Qualifiers: Nicotine product type: cigarettes Substance use status: uncomplicated Qualified Code(s): F17.210 - Nicotine dependence, cigarettes, uncomplicated - AMA Did Patient Leave Against Medical Advice: No
== END 2018-04-12 09:28 | disposition home or self-care (01) | DRG 775 ==
LOC: YASAS 15:17 → Y3N 18:07
PROC: HZ2ZZZZ Detoxification Services for Substance Abuse Treatment (ICD-10-PCS; principal; 2018-04-08)
DX: F10.230 Alcohol dependence with withdrawal, uncomplicated (principal); F12.20 Cannabis dependence, uncomplicated; F17.210 Nicotine dependence, cigarettes, uncomplicated; F19.24 Other psychoactive substance dependence with psychoactive substance-induced mood disorder; F32.9 Major depressive disorder, single episode, unspecified; F43.9 Reaction to severe stress, unspecified; K70.30 Alcoholic cirrhosis of liver without ascites; B18.2 Chronic viral hepatitis C; H55.00 Unspecified nystagmus; H91.91 Unspecified hearing loss, right ear; D61.818 Other pancytopenia; B35.4 Tinea corporis; L98.9 Disorder of the skin and subcutaneous tissue, unspecified; R82.90 Unspecified abnormal findings in urine; E07.9 Disorder of thyroid, unspecified; R63.4 Abnormal weight loss; Z68.21 Body mass index [BMI] 21.0-21.9, adult; Z91.5 Personal history of self-harm
CPT/HCPCS: 36415; 80053; 81003; 81015; 85027; 86593; 93005; 93010

== ENCOUNTER 2018-05-30 10:14 | Inpatient (IN) | payer OTHER ==
[2018-05-30 10:45] VITALS: BMI 24.0
--- NOTE | 2018-05-30 11:41 | HP ---
CIWA Score Nausea/Vomitin-No Nausea/No Vomiting Muscle Tremors: 4-Moderate,w/Arms Extend Anxiety: 1-Mildly Anxious Agitation: 1-Slight > Activity Paroxysmal Sweats: 2 Orientation: 0-Oriented Tacttile Disturbances: 0-None Auditory Disturbances: 0-None Visual Disturbances: 0-None Headache: 0-None Present CIWA-Ar Total Score: 8 - Admission Criteria OASAS Guidelines: Admission for Medically Managed Detox: Requires at least one of the followin. CIWA greater than 12 2. Seizures within the past 24 hours 3. Delirium tremens within the past 24 hours 4. Hallucinations within the past 24 hours 5. Acute intervention needed for co occurring medical disorder 6. Acute intervention needed for co occurring psychiatric disorder 7. Severe withdrawal that cannot be handled at a lower level of care (continued vomiting, continued diarrhea, abnormal vital signs) requiring intravenous medication and/or fluids 8. Admission ROS S - HPI Allergies/Adverse Reactions: Allergies Allergy/AdvReac Type Severity Reaction Status Date / Time No Known Allergies Allergy Verified 05/30/18 10:49 History of Present Illness: patient here requesting detox from ETOH use , reports 1 liter of vodka /day x 5 years , first age of use 9 , latest use yesterday afternoon , went to [facility] ER 2/2 fall while intoxicated, claims diagnosed with hairline fracture of the ribs ,most recent CXR 05/30/18 no fractures , no acute pulmonary disease , lab work reviewed and normal. per patient was given Valium in ER , utox + bZO .Patient reports withdrawal seizures , + blackouts , + falls while intoxicated , prior fractures : right wrist ( 6 years ago ) , left ankle ( many years ago ). Reports prior hx of DWI 10 years ago , sober x 18 months , then relapsed . 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 Exam Limitations: No Limitations - Ebola screening Have you been sick,other than usual withdrawal symptoms: No - Review of Systems Constitutional: See HPI EENT: reports: See HPI Respiratory: reports: Shortness of Breath Cardiac: reports: No Symptoms Reported : reports: Frequency Musculoskeletal: reports: Joint Pain Integumentary: reports: No Symptoms Reported Neuro: reports: Paresthesia, Seizure, Tingling, Unsteady Gait Endocrine: reports: Other (hypohyroidism) Psychiatric: reports: Orientated x3, Anxious, Depressed Patient History - Patient Medical History Hx Anemia: No Hx Asthma: No Hx Chronic Obstructive Pulmonary Disease (COPD): Yes ( On inhalers - no use x 3 months) Hx Cancer: No Hx Cardiac Disorders: No Hx Congestive Heart Failure: No Hx Hypertension: No Hx Hypercholesterolemia: No Hx Pacemaker: No HX Cerebrovascular Accident: No Hx Seizures: Yes (r/t alcohol withdrawal-2016) Hx Dementia: No Hx Diabetes: No Hx Gastrointestinal Disorders: Yes (Enlarged abdominal blood vessels; Hx esophogeal varicies) Hx Liver Disease: Yes (liver cirrhosis) Hx Genitourinary Disorders: No Hx Sexually Transmitted Disorders: No Hx Renal Disease (ESRD): No Hx Thyroid Disease: Yes (treated with synthroid - last taken 3 months ago) Hx Human Immunodeficiency Virus (HIV): No (2015) Hx Hepatitis C: No Hx Depression: Yes (DENIES SI/HI) Hx Suicide Attempt: Yes (DENIES AT THIS TIME) Hx Bipolar Disorder: No Hx Schizophrenia: No - Patient Surgical History Past Surgical History: Yes Hx Neurologic Surgery: No Hx Cataract Extraction: Yes (2014) Hx Cardiac Surgery: No Hx Lung Surgery: No Hx Breast Surgery: No Hx Breast Biopsy: No Hx Abdominal Surgery: No Hx Appendectomy: No Hx Cholecystectomy: No Hx Genitourinary Surgery: No Hx Orthopedic Surgery: Yes (left ankle fx - cast) Other Surgical History: R HAND FX 4 YEARS AGO, LEFT 3 RIBS BROKEN -3 WEEKS AGO Anesthesia Reaction: No - PPD History Previous Implant?: Yes Documented Results: Negative w/proof Implanted On Prior [facility] Admission?: Yes Date: 04/10/18 Results: NEGATIVE - Smoking Cessation Smoking history: Current some day smoker Have you smoked in the past 12 months: Yes Aproximately how many cigarettes per day: 6 Cigars Per Day: 0 Hx Chewing Tobacco Use: No Initiated information on smoking cessation: No - Substances Abused Alcohol Route: Oral Frequency: Daily Amount used: 1 LITER OF VODKA Age of first use: 9 Date of Last Use: 05/29/18 Family Disease History - Family Disease History Family History: Unable to Obtain (adopted since the age of 3 days) Family Disease History: Heart Disease: Father (), [place]: Grandparent, Mother () Admission Physical Exam [facility] - Vital Signs Vital Signs: Vital Signs - 24 hr 05/30/18 10:42 Temperature 97.7 F Pulse Rate 93 H Respiratory 18 Rate Blood Pressure 126/63 - Physical General Appearance: Yes: Disheveled, Moderate Distress, Tremorous, Anxious HEENTM: Yes: Normocephalic, Normal Voice, Pharynx Normal, Other (nystagmus - bilateral) Respiratory: Yes: Chest Non-Tender, Lungs Clear, Decreased Breath Sounds Neck: Yes: No masses,lesions,Nodules, Trachea in good position Cardiology: Yes: Regular Rhythm, Regular Rate, Tachycardia Abdominal: Yes: Normal Bowel Sounds, Soft Back: Yes: Normal Inspection Musculoskeletal: Yes: Joint Stiffness, Joint swelling Extremities: Yes: Tremors, Pedal Edema, Erythema, Inflammation Neurological: Yes: Fully Oriented, Motor Strength 5/5 Integumentary: Yes: Normal Color, Dry, Warm, Other (clubbing x 10 fingers) - Diagnostic (1) Alcohol dependence with uncomplicated withdrawal Current Visit: No Status: Acute (2) Alcoholic cirrhosis of liver without ascites Current Visit: No Status: Chronic Comment: With RUQ tenderness. No guarding or rebound. Abdominal varicose veins. (3) COPD (chronic obstructive pulmonary disease) Current Visit: No Status: Chronic Qualifiers: COPD type: emphysema Emphysema type: unspecified Qualified Code(s): J43.9 - Emphysema, unspecified [facility] Breath Alcohol Content Breath Alcohol Content: 0 Urine Drug Screen - Results Drug Screen Negative: No Urine Drug Screen Results: BZO-Benzodiazepines
[2018-05-30] MEDS ORDERED: MENTHOL/PHENOL 1 EACH UD MM PRN (11:54)
[2018-05-30] MEDS ORDERED: chlordiazePOXIDE HCL 25 MG CAPSULE PO PRN (11:54)
[2018-05-30] MEDS ORDERED: IBUPROFEN 400 MG TABLET (FP) PO PRN (11:54)
[2018-05-30] MEDS ORDERED: P-EPHED 60MG/TRIPROLIDI 2.5MG TABLET PO PRN (11:54)
[2018-05-30] MEDS ORDERED: MAG HYDROX/AL HYDROX/SIMETH 30 ML UNIT-DOSE CUP PO PRN (11:54)
[2018-05-30] MEDS ORDERED: guaiFENesin/D-METHORPHAN HB 10 ML UNIT-DOSE CUPS PO PRN (11:54)
[2018-05-30] MEDS ORDERED: MAGNESIUM HYDROX 2400MG/30ML ORAL SUSPENSION 30 ML CUP PO PRN (11:54)
[2018-05-30] MEDS ORDERED: MAGNESIUM CITRATE 300 ML BOTTLE PO PRN (11:54)
[2018-05-30] MEDS ORDERED: ALBUTEROL SO4 8 GM HFA INHALER IH PRN (11:57)
[2018-05-30] MEDS ORDERED: ALBUTEROL SO4 0.083% IH SOL 2.5 MG/3 ML VIAL.NEB. NEB PRN (11:58)
[2018-05-30] MEDS: chlordiazePOXIDE HCL 25 MG CAPSULE PO SCH ×2 (18:14→22:46)
[2018-05-30] MEDS ORDERED: MELATONIN 5 MG TABLETS PO PRN (22:00)
[2018-05-30] MEDS: BUDESONIDE/FORMETEROL FUMARATE 80/4.5 mcg INHALER IH SCH (22:46)
[2018-05-30] MEDS: THIAMINE HCL 100 MG TABLET (FP) PO SCH (22:47)
[2018-05-30 23:02] LABS: URINE APPEARANCE SLCLOUDY; URINE BILIRUBIN NEGATIVE (<2.0 mg/dL); URINE COLOR AMBER; URINE GLUCOSE (UA) NEGATIVE (NEGATIVE); URINE KETONE NEGATIVE (NEGATIVE); URINE LEUK ESTERASE NEGATIVE (NEGATIVE); URINE NITRITE NEGATIVE (NEGATIVE); URINE PROTEIN 1+ (NEGATIVE); URINE UROBILINOGEN 4.0 E.U/dl mg/dL (0.2-1.0)
[2018-05-30 23:29] LABS: EPI CELLS RARE /HPF (FEW); URINE MUCUS MODERATE
[2018-05-31] MEDS: chlordiazePOXIDE HCL 25 MG CAPSULE PO SCH ×4 (05:46→22:22)
[2018-05-31] MEDS: BUDESONIDE/FORMETEROL FUMARATE 80/4.5 mcg INHALER IH SCH ×2 (10:14→22:22)
[2018-05-31] MEDS: PRENATAL VITAMINS W/ FOLIC ACID TABLET (FP) PO SCH (10:14)
[2018-05-31 11:53] LABS: ANION GAP 6 MMOL/L (8-16); BLOOD UREA NITROGEN 11 mg/dL (7-18); CALCIUM 7.9 mg/dL (8.5-10.1); CHLORIDE 112 mmol/L (98-107); CO2 24 mmol/L (21-32); CREATININE 0.6 mg/dL (0.55-1.3); GLUCOSE,RANDOM 121 mg/dL (74-106); POTASSIUM 3.8 mmol/L (3.5-5.1); SODIUM 142 mmol/L (136-145)
[2018-05-31 12:35] LABS: RBC 3.58 M/mm3 (4.00-5.60)
[2018-05-31 12:50] LABS: HEMATOCRIT 36.4 % (35.4-49); HEMOGLOBIN 12.5 GM/dL (11.7-16.9); MCHC 34.4 g/dl (32.0-35.9); MEAN CELL VOLUME 101.7 fl (80-96); MEAN PLT VOLUME 8.8 fl (7.5-11.1); RDW 17.3 % (11.9-15.9); WHITE BLOOD COUNT 2.6 K/mm3 (4.0-10.0)
[2018-05-31 12:55] LABS: PLATELET COUNT 34 K/MM3 (134-434)
--- NOTE | 2018-05-31 13:32 | PN ---
S CIWA - CIWA Score Nausea/Vomitin-Mild Nausea/No Vomiting Muscle Tremors: 4-Moderate,w/Arms Extend Anxiety: 2 Agitation: 1-Slight > Activity Paroxysmal Sweats: 3 Orientation: 0-Oriented Tacttile Disturbances: 0-None Auditory Disturbances: 0-None Visual Disturbances: 0-None Headache: 0-None Present CIWA-Ar Total Score: 11 [facility] Progress Note (SOAP) Subjective: Shakes Generalized pain Objective: 05/31/18 13:32 In bed, A & O x 3 Vital Signs Temperature 96.6 F L 05/31/18 09:46 Pulse Rate 85 05/31/18 09:46 Respiratory Rate 18 05/31/18 09:46 Blood Pressure 128/80 05/31/18 09:46 O2 Sat by Pulse Oximetry (%) Laboratory Last Values WBC 2.6 K/mm3 (4.0-10.0) L 05/31/18 07:50 RBC 3.58 M/mm3 (4.00-5.60) L 05/31/18 07:50 Hgb 12.5 GM/dL (11.7-16.9) 05/31/18 07:50 Hct 36.4 % (35.4-49) 05/31/18 07:50 MCV 101.7 fl (80-96) H 05/31/18 07:50 MCH 35.0 pg (25.7-33.7) H 05/31/18 07:50 MCHC 34.4 g/dl (32.0-35.9) 05/31/18 07:50 RDW 17.3 % (11.9-15.9) H 05/31/18 07:50 Plt Count 34 K/MM3 (134-434) L* 05/31/18 07:50 MPV 8.8 fl (7.5-11.1) 05/31/18 07:50 Sodium 142 mmol/L (136-145) 05/31/18 07:50 Potassium 3.8 mmol/L (3.5-5.1) 05/31/18 07:50 Chloride 112 mmol/L (98-107) H 05/31/18 07:50 Carbon Dioxide 24 mmol/L (21-32) 05/31/18 07:50 Anion Gap 6 MMOL/L (8-16) L 05/31/18 07:50 BUN 11 mg/dL (7-18) 05/31/18 07:50 Creatinine 0.6 mg/dL (0.55-1.3) 05/31/18 07:50 Creat Clearance w eGFR > 60 (>60) 05/31/18 07:50 Random Glucose 121 mg/dL (74-106) H 05/31/18 07:50 Calcium 7.9 mg/dL (8.5-10.1) L 05/31/18 07:50 Urine Color Chante 05/30/18 22:00 Urine Appearance Slcloudy 05/30/18 22:00 Urine pH 7.0 (5.0-8.0) 05/30/18 22:00 Ur Specific [place] 1.025 (1.010-1.035) 05/30/18 22:00 Urine Protein 1+ (NEGATIVE) H 05/30/18 22:00 Urine Glucose (UA) Negative (NEGATIVE) 05/30/18 22:00 Urine Ketones Negative (NEGATIVE) 05/30/18 22:00 Urine Blood Negative (NEGATIVE) 05/30/18 22:00 Urine Nitrite Negative (NEGATIVE) 05/30/18 22:00 Urine Bilirubin Negative (<2.0 mg/dL) 05/30/18 22:00 Urine Urobilinogen 4.0 e.u/dl mg/dL (0.2-1.0) 05/30/18 22:00 Ur Leukocyte Esterase Negative (NEGATIVE) 05/30/18 22:00 Urine WBC (Auto) 2 /hpf (3-5) 05/30/18 22:00 Urine RBC (Auto) <1 /hpf (0-3) 05/30/18 22:00 Ur Epithelial Cells Rare /HPF (FEW) 05/30/18 22:00 Urine Mucus Moderate 05/30/18 22:00 RPR Titer Nonreactive (NONREACTIVE) 05/31/18 05:40 WBC, RBC, Platelets low Abnormal UA result Assessment: 05/31/18 13:35 withdrawal sx Pancytopenia Abnormal urinalysis Plan: continue detox Will recommend f/u with pmd on d/c (pt has a hx of pancytopenia from previous hx ) Educated on the need to avoid shaving, injuries on fall precautions
[2018-05-31] MEDS ORDERED: ACETAMINOPHEN 500 MG TABLET (FP) PO PRN (14:18)
[2018-05-31] MEDS: THIAMINE HCL 100 MG TABLET (FP) PO SCH (22:22)
[2018-06-01] MEDS: chlordiazePOXIDE HCL 25 MG CAPSULE PO SCH ×2 (05:46→10:19)
[2018-06-01] MEDS: BUDESONIDE/FORMETEROL FUMARATE 80/4.5 mcg INHALER IH SCH ×2 (10:19→22:50)
[2018-06-01] MEDS: PRENATAL VITAMINS W/ FOLIC ACID TABLET (FP) PO SCH (10:19)
--- NOTE | 2018-06-01 16:25 | PN ---
S CIWA - CIWA Score Nausea/Vomitin Muscle Tremors: 3 Anxiety: 3 Agitation: 3 Paroxysmal Sweats: 5 Orientation: 0-Oriented Tacttile Disturbances: 0-None Auditory Disturbances: 0-None Visual Disturbances: 0-None Headache: 0-None Present CIWA-Ar Total Score: 16 B[facility] Progress Note (SOAP) Subjective: Tremor, sweating, interrupted sleep. [employer] spoke with patient regarding low platelets result. As per patient, he has liver cirrhosis and has been following up with his PCP and GI specialist. Patient instructed to report any bruising or bleeding to staff SERVANDO and to follow up with his PCP and GI specialist SERVANDO after discharge. Objective: 06/01/18 16:21 Last Vital Signs Temp Pulse Resp BP Pulse Ox 97.2 F L 75 16 96/50 L 06/01/18 13:51 06/01/18 13:51 06/01/18 13:51 06/01/18 13:51 Hypotension noted Laboratory Tests 05/30/18 05/31/18 05/31/18 22:00 05:40 07:50 WBC 2.6 L RBC 3.58 L Hgb 12.5 Hct 36.4 MCV 101.7 H MCH 35.0 H MCHC 34.4 RDW 17.3 H Plt Count 34 L* MPV 8.8 Sodium Potassium Chloride Carbon Dioxide Anion Gap BUN Creatinine Creat Clearance w eGFR Random Glucose Calcium Urine Color Chante Urine Appearance Slcloudy Urine pH 7.0 Ur Specific [place] 1.025 Urine Protein 1+ H Urine Glucose (UA) Negative Urine Ketones Negative Urine Blood Negative Urine Nitrite Negative Urine Bilirubin Negative Urine Urobilinogen 4.0 e.u/dl Ur Leukocyte Esterase Negative Urine WBC (Auto) 2 Urine RBC (Auto) <1 Ur Epithelial Cells Rare Urine Mucus Moderate RPR Titer Nonreactive 05/31/18 07:50 WBC RBC Hgb Hct MCV MCH MCHC RDW Plt Count MPV Sodium 142 Potassium 3.8 Chloride 112 H Carbon Dioxide 24 Anion Gap 6 L BUN 11 Creatinine 0.6 Creat Clearance w eGFR > 60 Random Glucose 121 H Calcium 7.9 L Urine Color Urine Appearance Urine pH Ur Specific [place] Urine Protein Urine Glucose (UA) Urine Ketones Urine Blood Urine Nitrite Urine Bilirubin Urine Urobilinogen Ur Leukocyte Esterase Urine WBC (Auto) Urine RBC (Auto) Ur Epithelial Cells Urine Mucus RPR Titer Labs reviewed: plt 34, abnormal UA Assessment: 06/01/18 16:22 Withdrawal symptoms Noted with hypotension, thrombocytopenia and abnormal UA Plan: Continue detox Hypotension: asymptomatic, encouraged to drink more water for hydration Thrombocytopenia: worsen (plt was 119 in 2016), deplection most likely due to chronic cirrhosis and chronic alcohol dependence, instructed to report bruising/ bleeding to staff SERVANDO and to follow up with PCP/GI specialist SERVANDO after discharge Abnormal UA: repeat UA
[2018-06-01] MEDS: chlordiazePOXIDE 5 MG CAPSULE PO SCH ×2 (17:32→22:50)
[2018-06-01 21:09] LABS: URINE APPEARANCE CLEAR; URINE BILIRUBIN NEGATIVE (<2.0 mg/dL); URINE COLOR AMBER; URINE GLUCOSE (UA) NEGATIVE (NEGATIVE); URINE KETONE NEGATIVE (NEGATIVE); URINE LEUK ESTERASE NEGATIVE (NEGATIVE); URINE NITRITE NEGATIVE (NEGATIVE); URINE PROTEIN NEGATIVE (NEGATIVE); URINE UROBILINOGEN 4.0 E.U/dl mg/dL (0.2-1.0)
[2018-06-01] MEDS: THIAMINE HCL 100 MG TABLET (FP) PO SCH (22:50)
[2018-06-02] MEDS: chlordiazePOXIDE 5 MG CAPSULE PO SCH ×2 (06:00→10:24)
[2018-06-02] MEDS: BUDESONIDE/FORMETEROL FUMARATE 80/4.5 mcg INHALER IH SCH ×2 (10:24→23:11)
[2018-06-02] MEDS: PRENATAL VITAMINS W/ FOLIC ACID TABLET (FP) PO SCH (10:24)
--- NOTE | 2018-06-02 12:09 | PN ---
[facility] Progress Note (SOAP) Subjective: SHAKES R RIB PAIN DENIES BLEEDING/BLOODY STOOL/HEMATOPSIS Objective: 06/02/18 12:04 a & o X 3 TREMULOUS NO RESP NOR ACUTE DISTRESS NOTED NO BLEEDING NOR ECHYMOSIS NOTED TO SKIN Vital Signs Temperature 98.7 F 06/02/18 09:07 Pulse Rate 70 06/02/18 09:07 Respiratory Rate 18 06/02/18 09:07 Blood Pressure 109/57 L 06/02/18 09:07 O2 Sat by Pulse Oximetry (%) Assessment: 06/02/18 12:09 WITHDRAWAL SX R RIB PAIN FROM INJURY PRIOR TO DETOX HERE Plan: CONTINUE DETOX INJURY/BLEEDING PREVENTION
[2018-06-02] MEDS: chlordiazePOXIDE HCL 10 MG CAPSULE PO SCH ×2 (18:20→23:11)
[2018-06-02] MEDS: THIAMINE HCL 100 MG TABLET (FP) PO SCH (23:11)
[2018-06-03] MEDS: chlordiazePOXIDE HCL 10 MG CAPSULE PO SCH (05:37)
[2018-06-03 06:42] VITALS: BP 96/58; PULSE 45; TEMP 97.1
--- NOTE | 2018-06-03 11:24 | DS ---
[facility] Detox Discharge Summary Admission Date: 05/30/18 - History Present History: Alcohol Dependence Additional Comments: Patient completed detox successfully. Patient instructed to follow up with his PCP and GI specialist SERVANDO or within 1 week. Pertinent Past History: Alcohol dependence Liver cirrhosis COPD Thrombocytopenia - Physical Exam Results Vital Signs: Vital Signs Temperature 97.1 F L 06/03/18 06:41 Pulse Rate 45 L 06/03/18 06:41 Respiratory Rate 18 06/03/18 06:41 Blood Pressure 96/58 L 06/03/18 06:41 O2 Sat by Pulse Oximetry (%) Pertinent Admission Physical Exam Findings: Withdrawal symptoms Laboratory Tests 05/30/18 05/31/18 05/31/18 22:00 05:40 07:50 WBC 2.6 L RBC 3.58 L Hgb 12.5 Hct 36.4 MCV 101.7 H MCH 35.0 H MCHC 34.4 RDW 17.3 H Plt Count 34 L* MPV 8.8 Sodium Potassium Chloride Carbon Dioxide Anion Gap BUN Creatinine Creat Clearance w eGFR Random Glucose Calcium Urine Color [place] Urine Appearance Slcloudy Urine pH 7.0 Ur Specific [place] 1.025 Urine Protein 1+ H Urine Glucose (UA) Negative Urine Ketones Negative Urine Blood Negative Urine Nitrite Negative Urine Bilirubin Negative Urine Urobilinogen 4.0 e.u/dl Ur Leukocyte Esterase Negative Urine WBC (Auto) 2 Urine RBC (Auto) <1 Ur Epithelial Cells Rare Urine Mucus Moderate RPR Titer Nonreactive 05/31/18 06/01/18 07:50 19:00 WBC RBC Hgb Hct MCV MCH MCHC RDW Plt Count MPV Sodium 142 Potassium 3.8 Chloride 112 H Carbon Dioxide 24 Anion Gap 6 L BUN 11 Creatinine 0.6 Creat Clearance w eGFR > 60 Random Glucose 121 H Calcium 7.9 L Urine Color [place]ante Urine Appearance Clear Urine pH 6.0 Ur Specific [place] 1.025 Urine Protein Negative Urine Glucose (UA) Negative Urine Ketones Negative Urine Blood Negative Urine Nitrite Negative Urine Bilirubin Negative Urine Urobilinogen 4.0 e.u/dl Ur Leukocyte Esterase Negative Urine WBC (Auto) Urine RBC (Auto) Ur Epithelial Cells Urine Mucus RPR Titer Labs reviewed: results discussed with patient. Patient to follow up with his PCP and GI specialist SERVANDO - Treatment Hospital Course: Detox Protocol Followed, Detoxed Safely, Responded well, Discharged Condition Good - Medication Discharge Medications: Ambulatory Orders Escitalopram Oxalate [Lexapro -] 10 mg PO DAILY 11/30/15 Albuterol Sulfate Inhaler - [Ventolin HFA Inhaler -] 2 puff PO Q4H PRN #1 inhaler 04/12/18 Fluticasone/Salmeterol [Advair 250-50 Diskus] 1 each IH BID #1 blst.w.dev Lidocaine 5% Patch [Lidoderm Patch -] 1 patch TP DAILY 05/30/18 - Diagnosis (1) Hypotension Status: Acute (2) Thrombocytopenia Status: Chronic (3) Alcohol dependence with uncomplicated withdrawal Status: Acute (4) Alcoholic cirrhosis of liver without ascites Status: Chronic (5) COPD (chronic obstructive pulmonary disease) Status: Chronic Qualifiers: COPD type: emphysema Emphysema type: unspecified Qualified Code(s): J43.9 - Emphysema, unspecified (6) Abnormal finding on urinalysis Status: Resolved - AMA Did Patient Leave Against Medical Advice: No (F/U with PCP/GI specialist SERVANDO)
== END 2018-06-03 09:30 | disposition home or self-care (01) | DRG 775 ==
LOC: YASAS 10:14 → Y3N 12:15
PROVIDERS: ADMIT Neuromusculoskeletal Medicine & OMM; ATTEND Neuromusculoskeletal Medicine & OMM
PROC: HZ2ZZZZ Detoxification Services for Substance Abuse Treatment (ICD-10-PCS; principal; 2018-05-30)
DX: F10.230 Alcohol dependence with withdrawal, uncomplicated (principal); F12.20 Cannabis dependence, uncomplicated; F19.24 Other psychoactive substance dependence with psychoactive substance-induced mood disorder; I95.9 Hypotension, unspecified; D69.6 Thrombocytopenia, unspecified; J43.9 Emphysema, unspecified; K70.30 Alcoholic cirrhosis of liver without ascites; R82.90 Unspecified abnormal findings in urine; D61.818 Other pancytopenia; H55.00 Unspecified nystagmus; H91.91 Unspecified hearing loss, right ear; B18.2 Chronic viral hepatitis C; Z86.69 Personal history of other diseases of the nervous system and sense organs; Z91.5 Personal history of self-harm
CPT/HCPCS: 36415; 80048; 81003; 81015; 85027; 86593; 94640